=== PATIENT | male | born 1975 | race Two or more races ===

== ENCOUNTER → 2019-04-10 13:34 | Outpatient (BNVA) | payer OTHER, SELFPAY | PROVIDERS: Visit Provider Nurse Practitioner Family | DX: J02.9 Acute pharyngitis, unspecified (principal) | CPT/HCPCS: 87081; 87804; 87880 ==

== ENCOUNTER 2022-10-23 12:44 | Inpatient (IN) | payer OTHER, SELFPAY ==
[2022-10-23] VITALS (14 sets, daily range): BP systolic 148–178; BP diastolic 82–104; PULSE 62–92; RESP 14–22; TEMP 36.1–36.7; O2SAT 93–98; BMI 32.9
--- NOTE | 2022-10-23 | XR_ITS ---
WS: [id number] Right leg including the tibia and fibula, C ARM fluoroscopy views, 10/23/2022 Clinical Data: external fixator on right leg. or pic Comparison: Right ankle, 10/23/2022 Findings: Dr. Hill performed external skeletal fixation to reduce a severely comminuted fracture of the distal right tibia and distal right fibular fracture. Impression: External skeletal fixation to reduce comminuted distal right tibial fracture and right fibular fractu re.
--- NOTE | 2022-10-23 12:51 | XRR_ITS ---
PROCEDURE INFORMATION: Exam: XR Right Tibia and Fibula Exam date and time: 10/23/2022 1:01 PM Age: 47 years old Clinical indication: Injury or trauma; Other: Blunt trauma; Work related; Lower leg and ankle; Injury date: 10/23/2022; Injury details: At work he was pushing some wood with a tractor when a piece of wood came and hit him in his right lower leg TECHNIQUE: Imaging protocol: Radiologic exam of the right tibia and fibula. Views: 2 views. COMPARISON: No relevant prior studies available. FINDINGS: Bones/joints: Comminuted displaced distal tibial diametaphyseal fracture extending through the distal tibial articular surface. Displaced distal fibular diaphyseal fracture. Proximal tibia and fibula are intact. The visible portion of the distal femur is intact. Knee alignment is grossly normal. Soft tissues: There is diffuse soft tissue edema in the lower leg. XR/XR tibia fibula RT 2V [id number] IMPRESSION: 1. Comminuted displaced distal tibial fracture with extension to the articular surface. 2. Displaced distal fibular diaphyseal fracture.
--- NOTE | 2022-10-23 12:51 | XRR_ITS ---
PROCEDURE INFORMATION: Exam: XR Right Ankle Exam date and time: 10/23/2022 1:01 PM Age: 47 years old Clinical indication: Injury or trauma; Other: Blunt trauma; Work related; Lower leg and ankle; Injury date: 10/23/22; Injury details: At work he was pushing some wood with a tractor when a piece of wood came and hit him in his right lower leg TECHNIQUE: Imaging protocol: Radiologic exam of the right ankle. Views: 3 or more views. COMPARISON: No relevant prior studies available. FINDINGS: Bones/joints: There is a displaced transverse fracture of the distal fibular diaphysis. Fracture is displaced by 1 shaft width. Fragments are overriding by 11 mm. There is a severely comminuted and mildly displaced fracture of the distal tibial diametaphysis with a sagittally oriented fracture traversing the central aspect of the tibial plafond. There is 2-3 mm displacement of the tibial plafond visible on the oblique frontal view. Satisfactory ankle mortise alignment is maintained. Normal distal tibiofibular alignment is maintained. The hindfoot is intact. Soft tissues: There is diffuse soft tissue edema in the lower leg. No soft tissue foreign body. No soft tissue gas. XR/XR ankle RT min 3V* [id number] IMPRESSION: 1. Comminuted displaced intra-articular fracture of the distal tibia. 2. Displaced fracture of the distal fibular diaphysis. 3. Satisfactory ankle mortise alignment. Intact hindfoot.
--- NOTE | 2022-10-23 12:53 | ED_ITS ---
HPI - Extremity Problem General: Chief complaint: Extremity Injury, Lower Stated complaint: FX Lower Leg Time Seen by Provider: 10/23/22 12:45 Source: patient and EMS Mode of arrival: EMS Limitations: no limitations History of Present Illness: 47-year-old male that was at work he was pushing some wood with a tractor when a piece of wood came and hit him in his right lower leg he has obvious deformity to the right lower leg he had pain immediately he is given fentanyl in route his pains improved currently 3 out of 10 he has distal pulses intact he denies any other injuries Associated symptoms: Deny chest pain, fever(s) or rash Review of Systems Const: Denies: fever(s), chills, body aches or change in appetite ENMT: Denies: throat pain or dental pain Card: Denies: chest pain Resp: Denies: dyspnea GI: Denies: abdominal pain, nausea, vomiting or diarrhea Musc: Reports: extremity pain; Denies: neck pain or back pain Skin/Breast: Denies: rash Neuro: Denies: headache(s) PFSH ED PFSH: Social History Smoking and tobacco status: never smoked Alcohol intake: never Substance/Drug Use: never Physical Exam Const: COMMON NORMALS: no acute distress, patient oriented x3 and healthy appearing HENMT: COMMON NORMALS: normocephalic and atraumatic HEAD & SCALP: normocephalic and atraumatic Eye: COMMON NORMALS: conjunctivae normal CONJUNCTIVA: Yes conjunctivae normal Neck/C-Spine: COMMON NORMALS: supple Chest: COMMONS NORMALS: normal inspection of the chest Resp: COMMON NORMALS: normal respiratory effort Cardio: COMMON NORMALS: regular rate, regular rhythm and No murmurs present (Cardio) RATE: regular rate RHYTHM: regular rhythm GI: INSPECTION: Yes normal to inspection Extremity: NARRATIVE EXTREMITY EXAM: Tenderness to right lower leg obvious deformity distal pulses and sensation are intact Neuro: COMMON NORMALS: patient oriented x3, moves all extremities and no focal motor deficits Psych: COMMON NORMALS: mental status grossly normal, Normal thought process present and cooperative THOUGHT PROCESS: Normal thought process present Skin: COMMON NORMALS: no rashes or lesions noted and no wounds GENERAL SKIN EXAM: no rashes or lesions noted Course Vital Signs: Vital signs: Vital Signs Temperature 98.0 F 10/23/22 12:50 Pulse Rate 72 10/23/22 12:50 Respiratory Rate 16 10/23/22 12:50 Blood Pressure 152/87 10/23/22 12:50 Pulse Oximetry 95 10/23/22 12:50 Oxygen Delivery Me thod Room Air 10/23/22 12:50 MDM - Extremity (Nontraumatic) Medical Decision Making Patient presents here with a distal tib-fib fracture displaced spoke to orthopedic surgeon Dr. Hill who is taking patient to the OR at this time he has no other injuries noted distal pulses sensation intact Medical Records I reviewed the patient's medical records. Lab Data I reviewed the patient's lab results. Discharge Plan Discharge Patient Disposition: Admitted As Inpatient Clinical Impression: Fracture of right tibia and fibula Qualifiers: Encounter type: initial encounter Fracture type: closed Qualified Code(s): S82.201A - Unspecified fracture of shaft of right tibia, initial encounter for closed fracture Condition: Stable Coding Level of Care Code ED Carbonizer Tester for Kajal Moore
--- NOTE | 2022-10-23 13:36 | P.ANESASSM_ITS ---
Pre-Anesthetic Assessment Height/Weight: Height 1.83 m Weight 110.223 kg Temp Pulse Resp BP Pulse Ox O2 Del Method 98.0 F 92 16 152/87 95 Room Air 10/23/22 12:50 10/23/22 13:32 10/23/22 13:32 10/23/22 12:50 10/23/22 13:32 10/23/22 12:50 Ex-fix Familial anesthetic complications: None Last intake: MD[employer]MEs before work at 6:30, wild [employer]h pepsi at 9:30 Social No alcohol and No tobacco Exam alert, oriented x 3, clear to auscultation bilaterally and regular rate & rhythm Airway Mallampati: Class III Dentition: full Anesthetic Plan ASA status: 1E Anesthesia: General Risk of > 500 ml blood loss (7ml/kg in children): No Medications/Allergies Home Medications Medication Instructions Recorded Confirmed Last Taken Type No Known Home Medications 10/23/22 10/23/22 Unknown History Allergies Allergy/AdvReac Type Severity Reaction Status Date / Time No Known Allergies Allergy Verified 10/23/22 13:11 [facility] Anesthesia Social History Smoking and tobacco status: never smoked Alcohol intake: never Substance/Drug Use: never Data Anesthesia 10/23/22 13:26 10/23/22 13:26 Cardiac Studies: No Data to Display
[2022-10-23 13:37] LABS: Basophils # 0.1 10^3/uL (0.0-0.1); Basophils % 0.4 %; Eosinophils # 0.1 10^3/uL (0.0-0.8); Eosinophils % 0.8 %; Hematocrit 44.5 % (37-53); Lymphocytes # 1.6 10^3/uL (0.8-4.8); Lymphocytes % 11.4 %; Mean Corpuscular HGB Conc 33.5 g/dL (30-55); Mean Corpuscular Hemoglobin 28.1 pg (27-33); Mean Corpuscular Volume 83.8 fl (82-101); Mean Platelet Volume 10.3 fL (7.4-10.4); Monocytes # 0.8 10^3/uL (0.2-0.9); Monocytes % 5.6 %; Neutrophils # 11.19 10^3/uL (1.8-7.7); Neutrophils % 81.3 %; Nucleated Red Blood Cells % 0 %; Platelet Count 235 10^3/cmm (157-399); Red Blood Count 5.31 10^6/uL (3.85-5.65); Red Cell Distribution Width 12.6 % (12.1-15.1); White Blood Count 13.77 10^3/uL (3.29-11.43)
[2022-10-23 13:47] LABS: INR 0.95 (0.8-1.2)
[2022-10-23 13:57] LABS: Alanine Aminotransferase 16 U/L (0-41); Albumin Level 4.8 g/dL (3.5-5.2); Alkaline Phosphatase 77 U/L (40-130); Anion Gap 14.6 (5-19); Aspartate Amino Transferase 16 U/L (0-40); Blood Urea Nitrogen 18 mg/dL (6-20); Calcium 9.4 mg/dL (8.5-10.5); Carbon Dioxide 27 mmol/L (22-29); Chloride 104 mmol/L (98-107); Globulin 2.2 g/dL (1.3-4.6); Glomerular Filtration Rate 120.9 mL/min (90-130); Glucose 168 mg/dL (65-115); Osmolality Calculated 298 mOsm/kg (285-295); Potassium 4.6 mmol/L (3.5-5.1); Sodium 141 mmol/L (136-145); Total Bilirubin 0.8 mg/dL (0.15-1.2)
[2022-10-23] MEDS: fentaNYL 50 mcg/mL INJ 2mL IVP (14:15)
[2022-10-23] MEDS: ceFAZolin 2,000 MG in sodium chloride 0.9% (plus) 50 ML 100 MG IV (14:15)
[2022-10-23] MEDS: sodium chloride 0.9% 1,000 ML 30 ML IV (14:30)
[2022-10-23] MEDS: fentaNYL 50 mcg/mL INJ 2mL 100 MCG IVP (15:27)
--- NOTE | 2022-10-23 15:29 | P.OP_ITS ---
Operative Report Date of procedure: October 23, 2022 Pre-op diagnosis: Right pilon fracture Post-op diagnosis: same Procedure done: Uniplanar external fixator right ankle Surgeon: Venkata Hill DO Freezing Machine Operator: Tre Dumont Freezing Machine Operator: The surgical tech, Tre Dumont, KHANH was needed for his expertise with fracture care. He was important and necessary throughout the procedure to complete in a safe and timely manner. He assisted with patient positioning prepping and draping tissue retraction suctioning of the operative field protection of the critical structures and tissue closure Estimated blood loss (mL): 5 Procedure: Application of uniplanar Ex-Fix on the right ankle Patient is brought to the operative suite after undergoing a seizure was placed in the supine position. The right leg was prepped and draped normal sterile fashion. C-arm was brought in to the pins were placed into the tibia shaft above the fracture. An 1 pin was placed from medial to lateral through the calcaneus. The pin the dev clamps and dev dev clamps were attached. Traction was applied both AP and lateral fluoroscopy ensured that the fracture was in good alignment all the pins and rods were tightened the pins were cleaned and dressings were applied. Patient was then transferred to the PACU in stable condition.
--- NOTE | 2022-10-23 15:58 | CTR_ITS ---
PROCEDURE INFORMATION: Exam: CT Right Lower Extremity Without Contrast; Lower Leg Exam date and time: 10/23/2022 4:39 PM Age: 47 years old Clinical indication: Pain; Lower leg; Right; Prior surgery; Surgery date: Post-operative (0-2 days); Surgery type: External fix; Additional info: Post-op tib/fib FX TECHNIQUE: Imaging protocol: CT of the right lower extremity without contrast was performed. Exam focused on the lower leg. Radiation optimization: All CT scans at this facility use at least one of these dose optimization techniques: automated exposure control; mA and/or kV adjustment per patient size (includes targeted exams where dose is matched to clinical indication); or iterative reconstruction. REPORTING DATA: Count of CT and Cardiac NM exams in prior 12 months: This patient has received 0 known CTs and 0 known cardiac nuclear medicine studies in the 12 months prior to the current study. COMPARISON: XA XR tibia fibula RT 2V [id number] 10/23/2022 1:36 PM RADIATION DOSE METRICS: Total DLP (mGy-cm): 158 FINDINGS: Bones/joints: Percutaneous fixation pen transverses the calcaneus. Severely comminuted displaced fracture in the distal diaphysis and metaphysis of the tibia. There is an oblique fracture with intra-articular extension in the central tibial plafond. Comminuted displaced fracture in the mid to distal diaphysis of the fibula. The other visualized bones of the ankle and foot appear intact. Soft tissues: Subcutaneous soft tissue stranding and edema in the anterior lower leg, ankle, and dorsal foot. CT/CT ankle RT wo con* [id number] IMPRESSION: 1. Comminuted displaced distal tibia fracture, with extension into the central plafond. 2. Comminuted displaced mid to distal diaphyseal fibula fracture. 3. External fixation with percutaneous pin through the calcaneus.
--- NOTE | 2022-10-23 16:00 | ANE.PACU2 ---
Inpatient post-anesthesia follow up: Airway intact: Yes Vital signs: Temperature 98.4 F Pulse Rate 63 Respiratory Rate 17 Blood Pressure 149/79 Pulse Oximetry 99 Oxygen Delivery Me thod Room Air Oxygen Flow Rate Fraction of Inspir ed Oxygen Hydration adequate: Yes Nausea and vomiting: No Pain level: 1 Mental status: Baseline
[2022-10-23] MEDS: sodium chloride 0.9% 1,000 ML 80 ML IV (16:52)
[2022-10-24] VITALS: BP 145/88; PULSE 63; RESP 16; TEMP 36.6; O2SAT 98
[2022-10-24 03:40] VITALS: BP 149/79; PULSE 63; RESP 17; TEMP 36.9; O2SAT 99
[2022-10-24] MEDS: sodium chloride 0.9% 1,000 ML 80 ML IV (04:31)
[2022-10-24] MEDS: enoxaparin 40 mg/0.4 mL Syringe SUBCUT (05:45)
--- NOTE | 2022-10-24 06:07 | PC.NURSE ---
Ex fix mid dev had drainage throughout the night. Reenforced with fluff gauze. Patient tolerated well.
[2022-10-24 07:35] VITALS: BP 145/83; PULSE 59; RESP 16; TEMP 36.7; O2SAT 97
--- NOTE | 2022-10-24 07:47 | P.PN_ITS ---
Subjective Subjective: POD 1 Patient resting comfortably. Denies any shortness of breath or chest pain. Right lower extremity is elevated. Vitals/I&O/Wt Last Vital Signs Temp 98.0 F 10/24/22 07:35 Pulse 59 L 10/24/22 07:35 Resp 16 10/24/22 07:35 BP 145/83 10/24/22 07:35 Pulse Ox 97 10/24/22 07:35 O2 Del Method Room Air 10/24/22 07:35 10/23/22 10/24/22 10/24/22 22:59 06:59 14:59 Intake Total 1089.5 / 1139.5 1732 / 2871.5 Output Total 800 / 800 950 / 1750 Balance 289.5 / 339.5 782 / 1121.5 Weight last 48 hrs Weight 243 lb Physical Exam Narrative: Patient is alert orient x3 is good general appearance no apparent distress. External fixator is intact. He is wiggling his toes with good capillary refill normal sensation light touch. Calves are supple no signs of compartment syndr ome. Data 10/23/22 13:26 10/23/22 13:[address]: Radiologist's impression: CT/CT ankle RT wo con* [id number] IMPRESSION: 1. Comminuted displaced distal tibia fracture, with extension into the central plafond. 2. Comminuted displaced mid to distal diaphyseal fibula fracture.? 3. External fixation with percutaneous pin through the calcaneus. ? A&P Assessment and plan (1) Pilon fracture of right tibia: Discussed with the patient to continue ice elevation to the right lower extremity. Discussed with the patient also that we will have our foot and ankle specialist Dr. Hilton consulted for upcoming open reduction internal fixation once the swelling has calm down. Encourage incentive spirometry for pulmonary toilet. (2) Fracture of right tibia and fibula: Qualifiers: Encounter type: initial encounter Fracture type: closed Qualified Code(s): S82.201A - Unspecified fracture of shaft of right tibia, initial encounter for closed fracture; S82.401A - Unspecified fracture of shaft of right fibula, initial encounter for closed fracture Attestations Medical Necessity Statement*: Defer to podiatry Coding Level of Care Code Acute Code for Chg Fwd Diagnoses Pilon fracture of right tibia S82.871A Fracture of right tibia and fibula S82.201A; S82.401A Encounter type: initial encounter Fracture type: closed
--- NOTE | 2022-10-24 10:09 | PC.CHAP ---
Pastoral Care Encounter/Spiritual Assessment Type of Contact [] Declined supervisor assembly visit [] Patient/Family/Request visit [] Outpatient visit [] Follow-up visit [] Physician referral [] Code/Alert [x] Routine visit [] Staff referral [] Actively dying [] Patient sleeping [] Family support [] [] Out of room [] Palliative care [] [x] Receiving care in room [] Pre-surgical visit [] Trauma [] Long length of stay [] ICU visit [] Other: Relational/Emotional Strength [x] Patient feels connected with others/family/visitors/staff [] Distress [] Loneliness/isolation [] Abandonment Spirituality of Patient [x] Person of Megan [] Attends Orthodox of their Megan [x] Believes in Prayer [] Reads Bible or Buddhist materials [] There are Spiritual issues to be addressed Lab Coordinator Interventions [x] Prayer [x] Active listening [x] Non-anxious presence [x] Spiritual/emotional support [] Crisis/trauma care [x] Spiritual counseling [] Bereavement support [] Provided bereavement packet [] Provided Bible/devotional materials [] Provided toy/stuffed animal, coloring book to patient or family member [] Provided Communion [] Anointing/[place] [] Salvation [x] Completed spiritual assessment [] Other: Impact on Illness or Injury [] Angry [] Fearful [] Anxious [] Often cries [] Exhaustion [] Unable to work [] Unable to attend amish [] Unable to walk/stand [] Unable to read [] Unable to drive [] Unable to eat/drink [] Unable to sleep [] Unable to be with family [] Patient intubated [] Other: Summary avebia on leg postive attitude well need some erhab and recovery Time spent with patient
[2022-10-24 11:51] LABS: Estmated Average Glucose 134; Hemoglobin A1C 6.3 % (4.0-6.0)
[2022-10-24 12:24] VITALS: BP 145/83; PULSE 59; RESP 16; TEMP 36.7; O2SAT 97
--- NOTE | 2022-10-28 06:28 | W.PM.OPSUD ---
Surgery/Procedure H&P Update DATE OF PROCEDURE: October 28, 2022 DATE H&P PERFORMED: 10/23/22 H&P UPDATE INFORMATION: I have reviewed H&P completed within last 30 days, I have examined patient prior to procedure and No changes to prior documentation PREOP DIAGNOSIS: Right Pilon Fracture PLANNED PROCEDURE: Operation Date: 10/23/22 16:00 Proposed Procedures p External Fixator Lower Extremity(Right) - Venkata Hill DO
--- NOTE | 2022-10-28 06:29 | PM.DCS ---
Discharge Providers Date of Admission: 10/23/22 15:48 Date of Discharge: October 24, 2022 Attending Provider at Admission: Venkata Hill DO Attending Provider at Discharge: Venkata Hill DO Diagnoses at Discharge Discharge Diagnosis (1) Pilon fracture of right tibia: Status: Acute (2) Fracture of right tibia and fibula: Status: Acute Qualifiers: Encounter type: initial encounter Fracture type: closed Qualified Code(s): S82.201A - Unspecified fracture of shaft of right tibia, initial encounter for closed fracture; S82.401A - Unspecified fracture of shaft of right fibula, initial encounter for closed fracture Reason for Visit Reason for Visit: FX Lower Leg Discharge Data Studies Completed and Pending Completed Studies During Hospitalization Category Date Time Status CT ankle RT wo con* [id number] Routine Cat Scan 10/23/22 15:58 Completed XR ankle RT min 3V* [id number] Stat Exams 10/23/22 12:51 Completed XR tibia fibula RT 2V [id number] Routine Exams 10/23/22 Completed XR tibia fibula RT 2V [id number] Stat Exams 10/23/22 12:51 Completed Radiology Impressions Ankle X-Ray 10/23/22 12:51 IMPRESSION: 1. Comminuted displaced intra-articular fracture of the distal tibia. 2. Displaced fracture of the distal fibular diaphysis. 3. Satisfactory ankle mortise alignment. Intact hindfoot. Tibia/Fibula X-Ray 10/23/22 12:51 IMPRESSION: 1. Comminuted displaced distal tibial fracture with extension to the articular surface. 2. Displaced distal fibular diaphyseal fracture. Ankle CT 10/23/22 15:58 IMPRESSION: 1. Comminuted displaced distal tibia fracture, with extension into the central plafond. 2. Comminuted displaced mid to distal diaphyseal fibula fracture. 3. External fixation with percutaneous pin through the calcaneus. Laboratory Results WBC 13.77 10^3/uL (3.29-11.43) H 10/23/22 13:26 RBC 5.31 10^6/uL (3.85-5.65) 10/23/22 13:26 Hgb 14.90 g/dL (11.27-16.99) 10/23/22 13:26 Hct 44.5 % (37-53) 10/23/22 13:26 MCV 83.8 fl (82-101) 10/23/22 13:26 MCH 28.1 pg (27-33) 10/23/22 13:26 MCHC 33.5 g/dL (30-55) 10/23/22 13:26 RDW 12.6 % (12.1-15.1) 10/23/22 13:26 Plt Count 235 10^3/cmm (157-399) 10/23/22 13:26 MPV 10.3 fL (7.4-10.4) 10/23/22 13:26 Neut % (Auto) 81.3 % 10/23/22 13:26 Lymph % (Auto) 11.4 % 10/23/22 13:26 [place] % (Auto) 5.6 % 10/23/22 13:26 Eos % (Auto) 0.8 % 10/23/22 13:26 Baso % (Auto) 0.4 % 10/23/22 13:26 Neut # (Auto) 11.19 10^3/uL (1.8-7.7) H 10/23/22 13:26 Lymph # (Auto) 1.6 10^3/uL (0.8-4.8) 10/23/22 13:26 [place] # (Auto) 0.8 10^3/uL (0.2-0.9) 10/23/22 13:26 Eos # (Auto) 0.1 10^3/uL (0.0-0.8) 10/23/22 13:26 Baso # (Auto) 0.1 10^3/uL (0.0-0.1) 10/23/22 13:26 Nucleated RBC % (auto) 0 % 10/23/22 13:26 Nucleated RBCs # 0.0 /100WBC 10/23/22 13:26 PT 13.00 SECONDS (12.1-14.9) 10/23/22 13:26 INR 0.95 (0.8-1.2) 10/23/22 13:26 Sodium 141 mmol/L (136-145) 10/23/22 13:26 Potassium 4.6 mmol/L (3.5-5.1) 10/23/22 13:26 Chloride 104 mmol/L (98-107) 10/23/22 13:26 Carbon Dioxide 27 mmol/L (22-29) 10/23/22 13:26 Anion Gap 14.6 (5-19) 10/23/22 13:26 BUN 18 mg/dL (6-20) 10/23/22 13:26 Creatinine 0.7 mg/dL (0.7-1.2) 10/23/22 13:26 GFR Calculation 120.9 mL/min (90-130) 10/23/22 13:26 Glucose 168 mg/dL (65-115) H 10/23/22 13:26 Estimat Average Glucose 134 10/23/22 13:26 Hemoglobin A1c 6.3 % (4.0-6.0) H 10/23/22 13:26 Calculated Osmolality 298 mOsm/kg (285-295) H 10/23/22 13:26 Calcium 9.4 mg/dL (8.5-10.5) 10/23/22 13:26 Total Bilirubin 0.8 mg/dL (0.15-1.2) 10/23/22 13:26 AST 16 U/L (0-40) 10/23/22 13:26 ALT 16 U/L (0-41) 10/23/22 13:26 Alkaline Phosphatase 77 U/L (40-130) 10/23/22 13:26 Total Protein 7.0 g/dL (6.6-8.7) 10/23/22 13:26 Albumin 4.8 g/dL (3.5-5.2) 10/23/22 13:26 Globulin 2.2 g/dL (1.3-4.6) 10/23/22 13:26 Vitals Last Vital Signs Temp 98.0 F 10/24/22 12:24 Pulse 59 L 10/24/22 12:24 Resp 16 10/24/22 12:24 BP 145/83 10/24/22 12:24 Pulse Ox 97 10/24/22 12:24 O2 Del Method Room Air 10/24/22 07:35 Discharge Plan Discharge Patient Disposition: Home Condition: Stable Prescriptions: New hydrocodone-acetaminophen 5-325 mg Tablet 1 - 2 tab PO Q4H PRN (Reason: Postoperative pain) Qty: 30 0RF Discharge Orders: Discharge Order (Routine); Ordered 10/24/22 Ordered By: Tre Dumont Referrals: Isadora Tatum FNP [Nurse Practitioner] - 10/29/22 1:20 pm Discharge Diet: Advance as tolerated Discharge Activity: Use walker/crutches as instructed Patient Instructions: Hydrocodone/Acetaminophen (By mouth), Leg Fracture (GEN), Crutch Instructions (ED), How to Choose and Use a Walker (GEN), External Fixation Device for an Adult (GEN), Opioid Safety Activity Restrictions/Additional Instructions: Nonweightbearing right lower extremity use crutches or walker. Ice elevation. Incentive spirometry for pulmonary toilet. Follow-up with Dr. Hilton Friday or Friday of next week. Discharge Attestations Time Spent in Discharge Care*: less than 30 min Quality Metrics Clinical Quality Measures [ No reported AMI, CVA or VTE this stay] Coding Level of Care Code Acute Code for g Fwd Diagnoses Pilon fracture of right tibia S82.871A Fracture of right tibia and fibula S82.201A; S82.401A Encounter type: initial encounter Fracture type: closed
== END 2022-10-24 12:25 | disposition home or self-care (01) | DRG 494 ==
LOC: ER 13:19 → OR 13:41 → MEDSURG 15:48
PROVIDERS: Podiatrist Foot & Ankle Surgery; Admitting Provider Orthopaedic Surgery; Emergency Provider Emergency Medicine; Visit Provider Orthopaedic Surgery
PROC: 0QHG34Z Insertion of Internal Fixation Device into Right Tibia, Percutaneous Approach (ICD-10-PCS; principal; 2022-10-23 16:00)
DX: S82.871A Displaced pilon fracture of right tibia, initial encounter for closed fracture (principal); S82.831A Other fracture of upper and lower end of right fibula, initial encounter for closed fracture; X58.XXXA Exposure to other specified factors, initial encounter
CPT/HCPCS: 36415; 73590; 73610; 73700; 80053; 83036; 85025; 85610; 96372; 97110; 97116; 97161; 97530; 99285; C1713; J0330; J0690; J1100; J1650; J2250; J2405; J2704; J3010; J7030

== ENCOUNTER 2022-10-31 06:51 | Day surgery (SDC) | payer OTHER, SELFPAY ==
[2022-10-30 10:50] VITALS: BMI 32.8
[2022-10-31] VITALS (22 sets, daily range): BP systolic 129–183; BP diastolic 85–115; PULSE 62–86; RESP 14–26; TEMP 36.2–36.8; O2SAT 93–100
--- NOTE | 2022-10-31 | XR_ITS ---
WS: [id number] Exam: XR ankle RT min 3V* [id number] Date/Time of Exam: 10/31/2022 12:00 AM Reason For Exam: right ankle surgery, c arm pic AP and lateral intraoperative C-arm images of the RIGHT ankle are presented. There is anterior plate and screw fixation of a markedly comminuted fracture of the lower tibia. Alig nment is satisfactory for healing. There is also plate and screw fixation of a fracture of the lower diaphysis of the fibula in satisfactory position. Numerous opaque sutures superimpose the tibial frac ture site.
[2022-10-31] MEDS: sodium chloride 0.9% 1,000 ML 30 ML IV (08:05)
--- NOTE | 2022-10-31 09:01 | W.PM.OPSUD ---
Surgery/Procedure H&P Update DATE OF PROCEDURE: October 31, 2022 DATE H&P PERFORMED: 10/28/22 H&P UPDATE INFORMATION: I have reviewed H&P completed within last 30 days, I have examined patient prior to procedure, No changes to prior documentation and H&P is in [facility] EMR on date indicated PREOP DIAGNOSIS: Right pilon fracture with external fixator PLANNED PROCEDURE: Operation Date: 10/31/22 09:00 Proposed Procedures p ?Removal of external fixator right lower extremity and Open reduction internal fixation right pilon [id number],[id number],s82.871a,s82.401a(Right) - Tay Hilton DPM s Open reduction internal fixation right pilon fracture(Right) - Tay Hilton DPM
[2022-10-31] MEDS: ceFAZolin 2,000 MG in sodium chloride 0.9% (plus) 50 ML 100 MG IV (09:30)
--- NOTE | 2022-10-31 10:20 | ANES.PREANE2 ---
Pre-Anesthetic Assessment Height/Weight: Height 1.83 m Weight 109.769 kg Temp Pulse Resp BP Pulse Ox O2 Del Method 97.6 F 86 16 129/86 95 Room Air 10/31/22 07:51 10/31/22 07:51 10/31/22 07:51 10/31/22 07:51 10/31/22 07:51 10/31/22 07:56 Preop Diagnosis: Right pilon fracture with external fixator Operation Date: 10/31/22 09:00 Proposed Procedures p ?Removal of external fixator right lower extremity and Open reduction internal fixation right pilon [id number](Right) - Tay Hilton DPM s Open reduction internal fixation right pilon fracture(Right) - Tay Hilton DPM Familial anesthetic complications: none Was Beta Waylon taken within 24 hours: N/A Was Clonidine taken within 24 hours: N/A Last intake: Intake Last Liquid Date 10/30/22 Last Liquid Time 21:00 Last Solid Date 10/30/22 Last Solid Time 21:00 Social No alcohol and No tobacco Exam alert, oriented x 3, clear to auscultation bilaterally and regular rate & rhythm Airway Submandibular: within normal limits Cervical ROM: within normal limits Mallampati: Class II Dentition: chipped Metabolic Morbid Obesity Anesthetic Plan ASA status: 2 Anesthesia: General and Regional (specify below) (right pop blk) Medications/Allergies Home Medications Medication Instructions Recorded Confirmed Last Taken Type hydrocodone 5 mg-acetaminophen 325 1 - 2 tab PO Q4H PRN Postoperative 10/24/22 10/31/22 10/30/22 Rx mg tablet pain #30 tabs blood sugar diagnostic (Blood #50 ea 10/29/22 10/29/22 Unknown Rx Glucose Test strips) blood-glucose meter (Blood Glucose #1 ea 10/29/22 10/29/22 Unknown Rx Monitoring kit) lancets 21 gauge #100 ea 10/29/22 10/29/22 Unknown Rx Allergies Allergy/AdvReac Type Severity Reaction Status Date / Time No Known Allergies Allergy Verified 10/31/22 08:02 Current Medications Generic Name Dose Route Start Last Admin Trade Name Freq PRN Reason Stop Dose Admin Sodium Chloride 1,000 mls @ 30 mls/hr 10/31/22 07:30 10/31/22 08:05 Sodium Chloride 0.9% IV 11/01/22 07:29 30 mls/hr .Q24H ADENIKE Administration PFSH Anesthesia Medical History No pertinent past medical history Surgical History History of appendectomy Family History Grandmother Cancer ovarian maternal Diabetes maternal Hypertension maternal Mother Diabetes Hypertension Denies family history of Chronic kidney disease (CKD) Lung disease Stroke Social History Smoking and tobacco status: never smoked Alcohol intake: never Substance/Drug Use: never Adopted: No Caregiver/support person: No Lives independently: No Household members: significant other service: No Current occupational status: employed Sexually active: Yes Do you think of yourself as: Straight/Heterosexual Current gender identity: Male Data Anesthesia Cardiac Studies: No Data to Display Anesthesia Procedures Nerve Block Nerve Block 1: Main Anesthesia: general anesthesia Time Out Performed: Yes Consent: requested by attending/covering physician, from patient, risks and benefits reviewed and patient agrees to proceed Nerve block location: popliteal (right) Anesthesia monitors applied: pulse oximetry, EKG, BP cuff and oxygen Nerve block position: supine Anesthetic Used: ropivicaine 0.5% Amount of anesthesia used (mL): 30 Ultrasound used to: recognize landmarks Nerve Stimulator Used?: No Interscalene/Femoral BLK: 4 stimuplex 21 g needle used for position and inplane approach Injection: neg aspiration of heme Patient Tolerated Procedure: well Complications: none
--- NOTE | 2022-10-31 11:49 | W.PM.BPON ---
Date of Procedure: 10/31/22 Surgeon: Tay Hilton DPM Computer [employer] Instructor(s): Rj Ontiveros Procedure(s) performed: Removal of external fixator right lower extremity. Open reduction internal fixation right pilon fracture including tibia and fibula. Findings of the procedure(s): No complications Estimated blood loss: 25 Specimen(s) removed: None Post-operative diagnosis: Closed, displaced pilon fracture right lower extremity.
--- NOTE | 2022-10-31 11:50 | P.OP_ITS ---
Operative Report Date of procedure: October 31, 2022 Pre-op diagnosis: Right distal tibial fracture Right distal fibula fracture Right pilon fracture Post-op diagnosis: Same Procedure done: Removal of external fixator right lower extremity. CPT code 41519 Open reduction internal fixation right pilon fracture. CPT code 26372 Implants: [place] anterior distal tibial plate [place] 4.2 millimeters screws [place] one third tubular plate [place] 3.5 millimeter screws 2-0 Vicryl 3-0 Vicryl Skin candis [place] magnesium bone void filler Specimens removed/disposition: None Pathology: None Surgeon: Tay Hilton DPM Dough Cutter: Mercedes Estimated blood loss: 25 101 IV fluids: None Urine output: None Complications: None Brief History: Right pilon fracture with Eloy Doss C fracture date of injury 10/23/2022 occurred at work, he was operating heavy equipment, lumbar fell from height and struck his right leg, he subsequently lost control of the equipment and accelerated hitting at a hard stop object in front of him. X-ray 10/23/2022 shows comminuted fracture of the diaphyseal metaphyseal juncture of the right distal tibia with fracture extending into the tibial plafond along with Eloy Doss C fracture.? Closed comminuted pilon fracture to the right l ower extremity with tibial and fibular involvement.? Right lower extremity was pulled out to length and stabilized with a external fixator with excellent reduction by orthopedic surgeon Dr. Hill.? Will be staged out for ORIF once soft tissue envelope has improved and ready for surgery.? 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 Patient would like to proceed with ORIF with the understanding that further surgical intervention, advanced bracing and even below-knee amputation may be options down the road.? I reviewed at length with the patient, the risks, potential complications, benefits, alternatives, expectations, and typical outcomes associated with the surgery. The risks and potential complications were explained in detail, including but not limited to infection, wound dehiscence or soft tissue complications, bleeding and hematoma, chronic edema, neuritis or nerve damage producing numbness or chronic pain, CRPS, failure to relieve pain or worsening pain, thick / painful / unsightly scar, limited motion / stiffness, malposition, delayed union, malunion, or nonunion, fracture, reaction to implants, anesthetic complications, venous thromboembolism, and deformity recurrence.? I discussed the notion of no regrets with the patient as it pertains to complications and outcomes. The patient seemed to understand the nature of the proposed care and required convalescence. They asked appropriate questions, answered to their satisfaction. They are aware no guarantees can be made as to a satisfactory outcome and they understand there may be other possible unforeseen complications or outcomes not listed here that will be treated accordingly if they arise. There were no written or implied guarantees given to the patient. They gave informed consent to proceed. Procedure: Under mild sedation the patient was brought to the operating room and placed onto the operating table in supine position. A timeout was performed. Anesthesia was then administered by the anesthesia service. Of note anesthesia service provided a popliteal block to the right lower extremity preoperatively. A well-padded pneumatic tourniquet was applied to the patient's right high thigh. Attention was directed to the right lower extremity with external fixator was planned for removal. Chlorhexidine around each pin of the external fixator skin the pin interface and the entire pin was performed. This was performed both at both tibial pins and the transcalcaneal pin. External fixator was removed and half pins were removed from the tibia x2 in total as well as the transaxial calcaneal pin and passed from the operative field to be disposed of. The right lower extremity was then scrubbed, prepped and draped utilizing normal aseptic technique. Right lower extremity was exanguinated with an Esmarch bandage and a tourniquet inflated to 300 mmHg. Attention was directed to the right distal fibula where the lateral malleolus was palpated. The diaphysis of the lateral distal fibula was also palpated, directly over the fibula a linear longitudinal incision was made through skin with a #15 blade with dissection carried down to the layer of periosteum utilizing sharp and blunt technique. Care was taken to retract and preserve neurovascular and tendinous structures. All bleeders were ligated and cauterized as necessary. Fracture was identified at the fibula this was a high fibular fracture consistent with Eloy Gonsalves. Fracture hematoma was evacuated and the fracture was reduced and fixated utilizing a [place] one third tubular plate with 3.5 mm locking screws 2 screws proximal and 2 screws distal to the fracture with excellent stabilization and excellent bony apposition and compression noted at the fracture site. Anatomic reduction was confirmed utilizing intraoperative C arm in the AP, oblique and lateral views. The lateral incision was then irrigated with copious amounts of sterile saline solution and closed in a layered fashion. Periosteum was closed with 2-0 Vicryl, subcutaneous tissue closed with 3-0 Vicryl and skin with skin candis. Attention was then directed to the right anterior tibia where a linear longitudinal incision was made through skin with #15 blade approximately at the anterior distal 15 cm proximal to the ankle joint tibia 1 cm lateral to the anterior tibial crest coursing distal to the level of the ankle joint. Incision was carried deeper through subcutaneous tissue down to the layer of periosteum utilizing sharp and blunt technique. Care was taken to retract and preserve neurovascular and tendinous structures. All bleeders were ligated and cauterized as necessary. Tibialis anterior and neurovascular bundle will retracted medially and extensor hallucis longus was retracted laterally utilizing full-thickness flaps. Comminuted fracture with extension into the tibial plafond with a [place] fragment was appreciated. This was reduced under direct visualization and tibial fall and was anatomically aligned. The fracture was then fixated and spanned with a [place] anterior plate utilizing 4.2 mm locking and nonlocking screws. Total of 7 screws distal and 4 screws proximal. Bone voids were packed with magnesium filler provided by [place]. The AP, oblique and lateral views confirmed that the hardware did not violate the ankle mortise. The incision was irrigated with copious amounts of sterile skin solution and closed in a layered fashion. Periosteum was reapproximated utilizing 2-0 Vicryl. Subcutaneous tissue was reapproximated utilizing 3-0 Vicryl and skin was reapproximated utilizing skin candis. The incisions were then dressed with nonadherent Adaptic, sterile 4 x 4's, Kerlix followed by application of a well-padded multilayer compressive posterior splint with stirrup. Tourniquet was deflated and a prompt hyperemic response was noted to the distal digits of the right lower extremity. Patient tolerated the procedure and anesthesia well and was transferred to the PACU with vital signs stable and vascular status intact. Following a period of postoperative monitoring patient will be discharged home. He was advised to remain strict nonweightbearing. He is to elevate his foot while resting. He is to keep his postoperative dressings clean, dry and intact until his follow-up visit scheduled next week in podiatry clinic. I advised an 81 mg aspirin to be taken starting morning after surgery to help potentially reduce the risk of deep vein thrombosis. He was provided at home care instructions, scheduled follow-up and my cell phone number to contact with any postoperative questions or concerns.
[2022-10-31] MEDS: metoprolol tartrate 1 mg/1 mL SDV 5 mL 5 MG (12:10)
[2022-10-31] MEDS: hyDRALAzine 20 mg/mL INJ 1 mL 10 MG IVP (12:22)
[2022-10-31] MEDS: metoprolol tartrate 1 mg/1 mL SDV 5 mL 5 MG IVP (12:48)
[2022-10-31] MEDS: HYDROcodone-acetaminophen 10-325 mg Tablet 1 TAB PO (13:51)
--- NOTE | 2022-10-31 14:00 | ANE.PACU2 ---
Inpatient post-anesthesia follow up: Airway intact: Yes Vital signs: Temperature 98.0 F Pulse Rate 68 Respiratory Rate 16 Blood Pressure 151/95 Pulse Oximetry 97 Oxygen Delivery Me thod Room Air Oxygen Flow Rate 6 Fraction of Inspir ed Oxygen Hydration adequate: Yes Nausea and vomiting: No Pain level: 2 Mental status: Baseline
== END 2022-10-31 14:45 | disposition home or self-care (01) ==
PROVIDERS: PCP Nurse Practitioner Family; Visit Provider Podiatrist Foot & Ankle Surgery
PROC: (CPT 20697; principal; 2022-10-31 08:50)
PROC: (CPT 20697; 2022-10-31 08:50)
DX: S82.401A Unspecified fracture of shaft of right fibula, initial encounter for closed fracture (principal); S82.871A Displaced pilon fracture of right tibia, initial encounter for closed fracture; X58.XXXA Exposure to other specified factors, initial encounter; E66.01 Morbid (severe) obesity due to excess calories; Z68.32 Body mass index [BMI] 32.0-32.9, adult
CPT/HCPCS: 20697; 27828; 73610; 76000; C1713 ×2; C1762; J0360; J0690; J1100; J1170; J2250; J2405; J2704; J2795; J3010; J3490; J7030

== ENCOUNTER → 2022-11-14 12:33 | Outpatient (BNVA) | payer OTHER, SELFPAY | PROVIDERS: PCP Nurse Practitioner Family; Visit Provider Podiatrist Foot & Ankle Surgery | DX: S82.871D Displaced pilon fracture of right tibia, subsequent encounter for closed fracture with routine healing; S82.201D Unspecified fracture of shaft of right tibia, subsequent encounter for closed fracture with routine healing; S82.401D Unspecified fracture of shaft of right fibula, subsequent encounter for closed fracture with routine healing; X58.XXXD Exposure to other specified factors, subsequent encounter; Z48.89 Encounter for other specified surgical aftercare | CPT/HCPCS: 73610 ==

== ENCOUNTER → 2022-11-28 12:08 | Outpatient (BNVA) | payer OTHER, SELFPAY | PROVIDERS: PCP Nurse Practitioner Family; Visit Provider Podiatrist Foot & Ankle Surgery | DX: S82.201D Unspecified fracture of shaft of right tibia, subsequent encounter for closed fracture with routine healing; S82.401D Unspecified fracture of shaft of right fibula, subsequent encounter for closed fracture with routine healing; S82.871D Displaced pilon fracture of right tibia, subsequent encounter for closed fracture with routine healing; X58.XXXD Exposure to other specified factors, subsequent encounter | CPT/HCPCS: 73610 ==

== ENCOUNTER → 2022-12-12 12:45 | Outpatient (BNVA) | payer OTHER, SELFPAY | PROVIDERS: PCP Nurse Practitioner Family; Visit Provider Podiatrist Foot & Ankle Surgery | DX: Z98.890 Other specified postprocedural states; S82.871D Displaced pilon fracture of right tibia, subsequent encounter for closed fracture with routine healing; S82.201D Unspecified fracture of shaft of right tibia, subsequent encounter for closed fracture with routine healing; S82.401D Unspecified fracture of shaft of right fibula, subsequent encounter for closed fracture with routine healing; X58.XXXD Exposure to other specified factors, subsequent encounter | CPT/HCPCS: 73610 ==

== ENCOUNTER 2022-12-12 14:50 | Outpatient (CLI) | payer OTHER, SELFPAY | END 2022-12-12 14:51 | disposition home or self-care (01) | LOC: SPT 14:51 | PROVIDERS: PCP Nurse Practitioner Family; Visit Provider Podiatrist Foot & Ankle Surgery | DX: Z46.89 Encounter for fitting and adjustment of other specified devices (principal); S82.871D Displaced pilon fracture of right tibia, subsequent encounter for closed fracture with routine healing; S82.201D Unspecified fracture of shaft of right tibia, subsequent encounter for closed fracture with routine healing; S82.401D Unspecified fracture of shaft of right fibula, subsequent encounter for closed fracture with routine healing; Z98.890 Other specified postprocedural states; Z87.81 Personal history of (healed) traumatic fracture; X58.XXXD Exposure to other specified factors, subsequent encounter | CPT/HCPCS: 97760; L4361 ==

== ENCOUNTER → 2022-12-26 12:23 | Outpatient (BNVA) | payer OTHER, SELFPAY | PROVIDERS: PCP Nurse Practitioner Family; Visit Provider Podiatrist Foot & Ankle Surgery | DX: Z98.890 Other specified postprocedural states; S82.871D Displaced pilon fracture of right tibia, subsequent encounter for closed fracture with routine healing; S82.201D Unspecified fracture of shaft of right tibia, subsequent encounter for closed fracture with routine healing; S82.401D Unspecified fracture of shaft of right fibula, subsequent encounter for closed fracture with routine healing; X58.XXXD Exposure to other specified factors, subsequent encounter | CPT/HCPCS: 73610 ==

== ENCOUNTER → 2023-01-23 09:47 | Outpatient (BNVA) | payer OTHER, SELFPAY | PROVIDERS: PCP Nurse Practitioner Family; Visit Provider Podiatrist Foot & Ankle Surgery | DX: Z98.890 Other specified postprocedural states; S82.871D Displaced pilon fracture of right tibia, subsequent encounter for closed fracture with routine healing; S82.201D Unspecified fracture of shaft of right tibia, subsequent encounter for closed fracture with routine healing; S82.401D Unspecified fracture of shaft of right fibula, subsequent encounter for closed fracture with routine healing; X58.XXXD Exposure to other specified factors, subsequent encounter | CPT/HCPCS: 73610 ==

== ENCOUNTER → 2023-02-13 13:52 | Outpatient (BNVA) | payer OTHER, SELFPAY | PROVIDERS: PCP Nurse Practitioner Family; Visit Provider Podiatrist Foot & Ankle Surgery | DX: Z98.890 Other specified postprocedural states; S82.874 Nondisplaced pilon fracture of right tibia; S82.201D Unspecified fracture of shaft of right tibia, subsequent encounter for closed fracture with routine healing; S82.401D Unspecified fracture of shaft of right fibula, subsequent encounter for closed fracture with routine healing; X58.XXXD Exposure to other specified factors, subsequent encounter | CPT/HCPCS: 73610 ==

== ENCOUNTER → 2023-03-13 13:13 | Outpatient (BNVA) | payer OTHER, SELFPAY | PROVIDERS: PCP Nurse Practitioner Family; Visit Provider Podiatrist Foot & Ankle Surgery | DX: Z98.890 Other specified postprocedural states (principal); S82.871D Displaced pilon fracture of right tibia, subsequent encounter for closed fracture with routine healing; S82.201D Unspecified fracture of shaft of right tibia, subsequent encounter for closed fracture with routine healing; S82.401D Unspecified fracture of shaft of right fibula, subsequent encounter for closed fracture with routine healing; S82.874 Nondisplaced pilon fracture of right tibia; S82.871G Displaced pilon fracture of right tibia, subsequent encounter for closed fracture with delayed healing; X58.XXXD Exposure to other specified factors, subsequent encounter | CPT/HCPCS: 73610 ==

== ENCOUNTER → 2023-04-10 14:00 | Outpatient (BNVA) | payer OTHER, SELFPAY | PROVIDERS: PCP Nurse Practitioner Family; Visit Provider Podiatrist Foot & Ankle Surgery | DX: S82.874 Nondisplaced pilon fracture of right tibia (principal); Z98.890 Other specified postprocedural states; Z87.81 Personal history of (healed) traumatic fracture; S82.871D Displaced pilon fracture of right tibia, subsequent encounter for closed fracture with routine healing; S82.201D Unspecified fracture of shaft of right tibia, subsequent encounter for closed fracture with routine healing; S82.401D Unspecified fracture of shaft of right fibula, subsequent encounter for closed fracture with routine healing; X58.XXXD Exposure to other specified factors, subsequent encounter | CPT/HCPCS: 73610 ==

== ENCOUNTER 2023-04-18 15:07 | Outpatient (CLI) | payer OTHER, SELFPAY ==
--- NOTE | 2023-04-18 15:16 | CT_ITS ---
WS: [id number] CT RIGHT LOWER EXTREMITY, NONCONTRAST. HISTORY: CLOSED FX OF R ANKLE W/NONUNION Technique: All [facility] scans at [facility] use at least one of these dose optimization techniques: automated exposure control; mA and/or kV adjustment per patient size (includes targeted exams where dose is matched to clinical indication); or iterative reconstruction. DLP: 377.26 mGy.cm COMPARISON: Radiographs 04/10/2023, prior ankle CT 10/23/2022 Since the initial injury of 10/23/2022 plate and screw fixation has been placed. There is a short plate and screw transfixing the distal fibular diaphyseal fracture. Plate and screws appear in good alignm ent. There does appear to be at least some component of healing and callus formation at the fracture site. Additional plate and screw fixation involving the distal tibial diaphyseal fracture which extends thr ough the metaphysis into the plafond. Fracture extends to the tibiotalar joint as seen on the initial exam. The fracture is in improved alignment since the initial study. There is a large osseous gap ex tending over a length of 3.1 cm with no callus formation. Fracture through the tibial plafond does ap pear to have some degree of callus formation and fibrosis. Bony spicule posteriorly is angled posteri or. There is also evidence for prior external fixators as there are small screw tracts in the more proxim al tibia. There is an extremely mottled appearance of the lower extremity including the femoral condy les, patella and the foot. 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 IMPRESSION: 1. Nonunion fracture involving the distal tibia. There is a large gap of approximately 3.1 cm with n o callus formation. Plate and screw fixation is apparent in good alignment. 2. Plate and screw fixation distal fibular fracture appears appropriate. There is some osseous heali ng apparent. 3. Mottled appearance involving the distal femur, portions of the tibia fibula and the foot from dis use.
== END 2023-04-18 15:08 | disposition home or self-care (01) ==
LOC: RAD 15:10
PROVIDERS: PCP Nurse Practitioner Family; Visit Provider Orthopaedic Surgery
DX: S82.391K Other fracture of lower end of right tibia, subsequent encounter for closed fracture with nonunion (principal); X58.XXXD Exposure to other specified factors, subsequent encounter
CPT/HCPCS: 73700

== ENCOUNTER 2023-04-24 11:01 | Outpatient (CLI) | payer OTHER, SELFPAY ==
[2023-04-24 13:06] LABS: 25 Hydroxy Vitamin D 13 ng/mL (30-100)
== END 2023-04-24 11:02 | disposition home or self-care (01) ==
LOC: LAB 11:06
PROVIDERS: PCP Nurse Practitioner Family; Visit Provider Orthopaedic Surgery
DX: S82.891K Other fracture of right lower leg, subsequent encounter for closed fracture with nonunion (principal); X58.XXXD Exposure to other specified factors, subsequent encounter
CPT/HCPCS: 36415; 82306